=== PATIENT | female | born 2000 | race Caucasian/White ===

== ENCOUNTER 2023-09-26 10:31 | Day surgery (SDC) | payer BC ==
[~2023-09-26] VITALS: Ht 167.6 cm; Wt 56.2 kg
[2023-09-26 11:21] LABS: HCG,QUAL RESULT NEGATIVE (NEGATIVE)
[2023-09-26] MEDS ORDERED: MEPERIDINE HCL/PF 25 MG/ML DISP.SYRIN IVP PRN (12:45)
[2023-09-26] MEDS ORDERED: LABETALOL 100 MG/ 20ML VIAL IVP PRN (12:45)
[2023-09-26] MEDS ORDERED: MIDAZOLAM HCL 2 MG/2 ML VIAL (VERSED) IVP PRN (12:45)
[2023-09-26] MEDS ORDERED: LR 1,000 ML IV SCH (12:45)
[2023-09-26] MEDS ORDERED: hydrALAZINE HCL 20 MG/ML VIAL IVP PRN (12:45)
[2023-09-26] MEDS ORDERED: HYDROmorphone 1 MG/ML INJ. CARTRIDGE IVP PRN (12:45)
[2023-09-26] MEDS ORDERED: OXYMETAZOLINE HCL 0.05% NASAL SPRAY NS ONE (14:42)
[2023-09-26] MEDS ORDERED: HYDROmorphone 1 MG/ML INJ. CARTRIDGE ONE (15:18)
[2023-09-26] MEDS: HYDROmorphone 1 MG/ML INJ. CARTRIDGE IVP PRN (15:25)
[2023-09-26] MEDS ORDERED: METOCLOPRAMIDE HCL 10 MG/2 ML VIAL ONE (16:09)
[2023-09-26] MEDS: METOCLOPRAMIDE HCL 10 MG/2 ML VIAL IVP PRN (16:13)
[2023-09-26 17:07] VITALS: O2SAT 100
[2023-09-26 17:12] VITALS: BP_SYST 107; PULSE 69; RESP 20
== END 2023-09-26 17:35 | disposition home or self-care (01) ==
LOC: SDS 10:31 → SMU 10:32 → SDS 17:35
PROVIDERS: ATTEND Otolaryngology
DX: D38.5 Neoplasm of uncertain behavior of other respiratory organs (principal); J32.2 Chronic ethmoidal sinusitis; J34.89 Other specified disorders of nose and nasal sinuses; J32.9 Chronic sinusitis, unspecified; Z87.891 Personal history of nicotine dependence; Z98.818 Other dental procedure status; Z90.89 Acquired absence of other organs
CPT/HCPCS: 31296; 30140; 30520; 31240; 31256; 31255; 84703; 88304; 88305; 88311; J3490; J1100; J2765; J2250; J2405; J2704; J3010; J1170; J7120; C1726

== ENCOUNTER 2023-09-29 04:38 | Emergency (ER) | payer BC ==
[~2023-09-29] VITALS: Ht 167.6 cm; Wt 56.7 kg
[2023-09-29 04:49] VITALS: BP_SYST 117; PULSE 70; RESP 18; TEMP 99.3; O2SAT 96
[2023-09-29 05:24] VITALS: BP_SYST 116; PULSE 68; RESP 18; TEMP 98.7; O2SAT 97
[2023-09-29] MEDS: KETOROLAC TROMETHAMINE 30 MG VIAL IM ONE (05:28)
== END 2023-09-29 05:24 | disposition home or self-care (01) ==
LOC: SED 04:38
DX: R51.9 Headache, unspecified (principal); Z98.890 Other specified postprocedural states; Z91.040 Latex allergy status
CPT/HCPCS: 99281